=== PATIENT | female | born 1985 | race Two or more races ===

== ENCOUNTER 2018-11-10 14:47 | Outpatient (CLI) | payer OTHER ==
[~2018-11-10 14:47] MED LIST: KETO10TA2 PO; OXYC1TAB9 PO
== END 2018-11-10 15:00 | disposition home or self-care (01) ==
LOC: LAB 14:47
DX: N76.0 Acute vaginitis (principal)

== ENCOUNTER 2018-11-15 06:10 | Day surgery (SDC) | payer OTHER | END 2018-11-15 12:25 | disposition home or self-care (01) | LOC: CIR.AMB 06:10 | DX: O34.31 Maternal care for cervical incompetence, first trimester (principal); Z3A.13 13 weeks gestation of pregnancy ==

== ENCOUNTER 2018-12-05 14:46 | Outpatient (CLI) | payer OTHER | END 2018-12-05 14:59 | disposition home or self-care (01) | LOC: LAB 14:46 | DX: Z34.92 Encounter for supervision of normal pregnancy, unspecified, second trimester (principal) ==

== ENCOUNTER 2019-03-15 15:20 | Outpatient (CLI) | payer OTHER | END 2019-03-15 16:00 | disposition home or self-care (01) | LOC: NST 15:20 | DX: Z34.83 Encounter for supervision of other normal pregnancy, third trimester (principal) ==

== ENCOUNTER 2019-03-29 13:12 | Outpatient (CLI) | payer OTHER | END 2019-03-29 14:38 | disposition home or self-care (01) | LOC: NST 13:12 | DX: Z34.83 Encounter for supervision of other normal pregnancy, third trimester (principal) ==

== ENCOUNTER 2019-04-18 11:15 | Outpatient (CLI) | payer OTHER | END 2019-04-18 12:21 | disposition home or self-care (01) | LOC: NST 11:15 | DX: Z34.83 Encounter for supervision of other normal pregnancy, third trimester (principal) ==

== ENCOUNTER → 2019-04-26 17:00 | Outpatient (CLI) | payer OTHER | END | disposition home or self-care (01) | LOC: LAB 17:00 | DX: O09.73 Supervision of high risk pregnancy due to social problems, third trimester (principal); Z3A.36 36 weeks gestation of pregnancy ==

== ENCOUNTER 2019-05-10 16:46 | Inpatient (IN) | payer OTHER ==
[~2019-05-10] VITALS: Ht 165.1 cm; Wt 107.5 kg
[2019-05-14] MEDS ORDERED: OBSTETRIX ONE1 EACH PO (08:15)
== END 2019-05-15 12:55 | disposition home or self-care (01) | DRG 788 ==
LOC: OB/GYN 05-12 07:00 → LDR 05-12 07:38 → O/R 05-12 11:01 → OB/GYN 05-12 12:30
PROVIDERS: ADMIT Obstetrics & Gynecology
PROC: 3E033VJ Introduction of Other Hormone into Peripheral Vein, Percutaneous Approach (ICD-10-PCS; 2019-05-12)
PROC: 10907ZC Drainage of Amniotic Fluid, Therapeutic from Products of Conception, Via Natural or Artificial Opening (ICD-10-PCS; 2019-05-12)
PROC: 4A1HXCZ Monitoring of Products of Conception, Cardiac Rate, External Approach (ICD-10-PCS; 2019-05-12)
PROC: 10D00Z1 Extraction of Products of Conception, Low, Open Approach (ICD-10-PCS; principal; 2019-05-12 07:00)
DX: O82 Encounter for cesarean delivery without indication (principal); O65.4 Obstructed labor due to fetopelvic disproportion, unspecified; O61.0 Failed medical induction of labor; Z3A.39 39 weeks gestation of pregnancy; Z37.0 Single live birth

== ENCOUNTER 2025-08-05 18:38 | Inpatient (IN) | payer OTHER ==
[~2025-08-05] VITALS: Ht 165.1 cm; Wt 81.6 kg
[~2025-08-05 18:38] MED LIST changes: +OBSTETRIX ONE1 EACH PO
--- NOTE | 2025-08-05 19:46 | NUR ---
PACIENTE ALERTA YORIENTADA X3 QUIEN REFIERE VENIR POR REFIERIDO POR ANEMIA RESULTADO DE LABORATORIO 7.6. PACIENTE CON DOLOR DE FRANKIE Y MAREADA.
[2025-08-05] MEDS ORDERED: 0.9 % SODIUM CHLORIDE 1,000 ML IV SCH (20:00)
[2025-08-05] MEDS ORDERED: FAMOTIDINE/PF 20 MG in 0.9 % SODIUM CHLORIDE 8 ML IV PUSH ONE (20:15)
[2025-08-05] MEDS ORDERED: ONDANSETRON HCL 4 MG in 0.9 % SODIUM CHLORIDE 50 ML IV ONE (20:15)
[2025-08-05] MEDS ORDERED: FAMOTIDINE/PF 20 MG/2 ML VIAL ONE (21:44)
[2025-08-05] MEDS ORDERED: ONDANSETRON HCL 2 MG/ML VIAL ONE (21:44)
--- NOTE | 2025-08-05 22:27 | NUR ---
SE EDUCA ACERCA DE TX ORDENADO, SE CANALIZA Y COLECTAN MUESTRAS DE LABORATORIO MEDIANTE MEDIDAS ASEPTICAS. SE ADMINISTRAN MEDICAMENTOS IVY ORDEN MEDICA. SE CHRISTIAN ENVASE DE UA.
[2025-08-05 23:10] LABS: BASO % 1.1 % (0.1-1.2); EOS # 0.24 (0.04-0.54); EOS % 3.7 % (0.7-7.0); LYMPH # 2.16 (1.18-3.74); LYMPH % 33.0 % (19.3-53.1); MEAN PLATELET VOLUME 9.80 fl (9.4-12.4); MONO # 0.36 (0.24-0.82); MONO % 5.5 % (4.7-12.5); NEUT # 3.71 (1.56-6.13); NEUT % 56.5 % (34.0-71.1); RED CELL DISTRIBUTION WIDTH 17.1 % (11.6-14.4)
[2025-08-05 23:30] LABS: INR 0.99
[2025-08-05 23:43] LABS: ALT/SGPT 28 U/L (12-78); AST/SGOT 19 U/L (15-37); BILIRUBIN TOTAL 0.33 mg/dL (0.3-1.2); BUN CREA RATIO 19 (7.0-25.0); CREATININE SERUM 0.81 mg/dL (0.55-1.02); GFR 77.54; GLOBULINA 3.6 G/DL (2.4-3.5); GLUCOSE FASTING 88 mg/dL (65-100); OSMOLALITY SERUM 280 MOSM/KG (275-295)
[2025-08-05 23:45] LABS: HCG QUANTITATIVE < 1 mUI/mL (1-3)
[2025-08-06 06:32] LABS: URINE APPEARANCE Clear; URINE BILIRRUBIN Negative (NEGATIVE); URINE BLOOD Negative; URINE COLOR Yellow; URINE GLUCOSE Negative (NEGATIVE); URINE KETONE Negative (NEGATIVE); URINE LEUKOCYTE Negative; URINE NITRATE Negative; URINE PROTEIN Negative (NEGATIVE); URINE UROBILINOGEN 0.2 E.U./dl
[2025-08-06 06:36] LABS: URINE BACTERIA 689.7 uL (0.0-1933); URINE EPITHELIAL CELLS 25.4 uL (0.0-38.8); URINE WBC 23.1 uL (0.0-23.2)
[2025-08-06 06:44] LABS: URINE CAST 0.00 uL (0.0-1.40); URINE RBC 1.6 uL (0.0-20.8)
--- NOTE | 2025-08-06 08:00 | NUR ---
SE RECIBE FEMINA ALERTA Y ORIENTADA X3 EN CAMA #7 CON BARANDAS ELEVADAS Y CANADA DE ID. VENOPUNCION X2 RT ARM PATENTES AME DE EDEMA Y ERITEMA BAJANDO IV FLUIDS POR REGULADOR. PTE PENDIENTE A 2 UNIDADES PRBCS COMPLETAS.
[2025-08-06] MEDS ORDERED: FAMOTIDINE/PF 20 MG in 0.9 % SODIUM CHLORIDE 8 ML IV PUSH SCH (09:00)
[2025-08-06] MEDS ORDERED: IRON/V.C/V.B12/FOLIC A/VIT. E 1 CAPL CAPLET PO SCH (09:00)
[2025-08-06] MEDS ORDERED: FAMOTIDINE/PF 20 MG/2 ML VIAL ONE (09:35)
[2025-08-06] MEDS ORDERED: FOLIC ACID 1 MG TABLET PO SCH (15:45)
[2025-08-06] MEDS ORDERED: INSULIN LISPRO 1,000 UNIT/10 ML UNITS SUBCUTANEO PRN (15:45)
[2025-08-06] MEDS ORDERED: DEXTROSE 50 % IN WATER 0.5 G/ML DISP.SYRIN IV PRN (15:45)
[2025-08-06 16:03] VITALS: BP 100/60
[2025-08-07 02:56] VITALS: BP 99/63; O2SAT 99
[2025-08-07 09:08] VITALS: BP 118/71
[2025-08-07 14:18] LABS: BASO % 1.1 % (0.1-1.2); EOS # 0.20 (0.04-0.54); EOS % 3.6 % (0.7-7.0); LYMPH # 1.41 (1.18-3.74); LYMPH % 25.6 % (19.3-53.1); MEAN PLATELET VOLUME 10.00 fl (9.4-12.4); MONO # 0.32 (0.24-0.82); MONO % 5.8 % (4.7-12.5); NEUT # 3.50 (1.56-6.13); NEUT % 63.5 % (34.0-71.1); RED CELL DISTRIBUTION WIDTH 17.9 % (11.6-14.4)
[2025-08-07 14:44] LABS: BUN CREA RATIO 13.0 (7.0-25.0); CREATININE SERUM 0.78 mg/dL (0.55-1.02); GFR 80.99; GLUCOSE FASTING 73.0 mg/dL (65-100); OSMOLALITY SERUM 281.0 MOSM/KG (275-295)
[2025-08-07 16:55] VITALS: BP 112/71; O2SAT 100
[2025-08-08 02:01] VITALS: BP 88/51; O2SAT 99
[2025-08-08 09:20] VITALS: BP 119/81
== END 2025-08-08 10:58 | disposition home or self-care (01) | DRG 812 ==
LOC: ER 18:39 → SEC-K 08-06 15:46 → MEDI 08-06 15:46 → MEDJ 08-06 20:17 → MEDI 08-06 21:16
PROVIDERS: General Practice; ADMIT Internal Medicine; ATTEND Internal Medicine
PROC: 30233N1 Transfusion of Nonautologous Red Blood Cells into Peripheral Vein, Percutaneous Approach (ICD-10-PCS; principal; 2025-08-06)
DX: D64.9 Anemia, unspecified (principal)